=== PATIENT | male | born 1975 | race American Indian/Alaskan Native ===

== ENCOUNTER 2019-03-30 10:57 | Emergency (ER) | payer OTHER ==
[2019-03-30 11:09] VITALS: BP 139/83
[2019-03-30] MEDS ORDERED: TETANUS,DIPH,PERTUSS(ACELL) VACCINE 0.5 ML SYRINGE IM ONE (11:13)
--- NOTE | 2019-03-30 11:17 | Emergency Department Report ---
ED Laceration HPI - HPI Chief Complaint: Laceration/Recheck/Suture Stated Complaint: CUT FINGER Time Seen by Provider: 03/30/19 11:11 Occurred When: Today Location: Upper Extremity Severity: mild Tetanus Status: Not up to Date Laceration Symptoms: Yes Pain, No Foreign Body Sensation, No Numbness, No Weakness Other History: This is a 43-year-old male nontoxic, well in appearance with no signs of distress presents to the ED for laceration to right 5th finger after accident at work with metal. Stated blood is under control. Patient stated he is asymptotic. Denies any decreased ROM. Patient denies any fever, chills, headache, nausea, vomiting, chest pain or shortness of breathe. Denies any other symptoms or complaints. Denies any allergies or PMH. ED Review of Systems ROS: Stated complaint: CUT FINGER Other details as noted in HPI Constitutional: denies: chills, fever Eyes: denies: eye pain, eye discharge, vision change ENT: denies: ear pain, throat pain Respiratory: denies: cough, shortness of breath, wheezing Cardiovascular: denies: chest pain, palpitations Endocrine: no symptoms reported Gastrointestinal: denies: abdominal pain, nausea, diarrhea Genitourinary: denies: urgency, dysuria Musculoskeletal: denies: back pain, joint swelling, arthralgia Skin: denies: rash, lesions Neurological: denies: headache, weakness, paresthesias Psychiatric: denies: anxiety, depression Hematological/Lymphatic: denies: easy bleeding, easy bruising ED Past Medical Hx - Past Medical History Previous Medical History?: No - Surgical History Past Surgical History?: No - Social History Smoking Status: Current Every Day Smoker Substance Use Type: Alcohol - Medications Home Medications: Home Medications Medication Instructions Recorded Confirmed Last Taken Type Acetaminophen/Codeine [Tylenol 1 tab PO Q6H PRN #6 tab 03/30/19 Unknown Rx /Codeine # 3 tab] Sulfamethoxazole/Trimethoprim 1 each PO BID #10 tablet 03/30/19 Unknown Rx [Bactrim DS TAB] Laceration Physical Exam - Exam General: Vital signs noted. No distress. Alert and acting appropriately. Wound Length (cm): 1 (superifical) Laceration Location: Upper Extremity Laceration Exam: Yes Normal Distal CMS, No Foreign Body, No Exposed Tendon, Vessel, or Nerve, No Tendon Injury ED Course Vital Signs 03/30/19 11:07 Temperature 98.2 F Pulse Rate 85 Respiratory 18 Rate Blood Pressure 139/83 O2 Sat by Pulse 98 Oximetry - Reevaluation(s) Reevaluation #1: 03/30/19 11:15 Patient is speaking in full sentences with no signs of distress noted. - Laceration /Wound Repair Right Finger Wound Location: upper extremity (5th digit) Wound Length (cm): 1 Wound's Depth, Shape: superficial Wound Explored: clean Irrigated w/ Saline (ccs): 40 Betadine Prep?: Yes Wound Repaired With: Dermabond Sterile Dressing Applied?: Yes Progress: Under sterile field, I used betadine to clean the area. I then used Dermond to proximate the laceration. Sterile dressing applied. Patient tolerated well. Bleeding under control. ED Medical Decision Making - Medical Decision Making 43-year-old male that presents with lac. Patient is stable and was examined by me. Dermabond applied. Patient tolerated well. Educated on care. Patient was instructed to Follow-up with a primary care doctor in 3-5 days or if symptoms worsen and continue return to emergency room as soon as possible. At time of discharge, the patient does not seem toxic or ill in appearance. No acute signs of distress noted. Patient agrees to discharge treatment plan of care. No further questions noted by the patient. Critical care attestation.: If time is entered above; I have spent that time in minutes in the direct care of this critically ill patient, excluding procedure time. ED Disposition Clinical Impression: Laceration Disposition: DC-01 TO HOME OR SELFCARE Is pt being admited?: No Does the pt Need Aspirin: No Condition: Stable Instructions: Laceration (ED), Skin Adhesive Care (ED), Acetaminophen/Codeine (By mouth) Additional Instructions: Follow-up with a primary care doctor in 3-5 days or if symptoms worsen and continue return to emergency room as soon as possible. Prescriptions: Sulfamethoxazole/Trimethoprim [Bactrim DS TAB] 1 each PO BID #10 tablet Acetaminophen/Codeine [Tylenol /Codeine # 3 tab] 1 tab PO Q6H PRN #6 tab PRN Reason: Pain , Severe (7-10) Referrals: PRIMARY CAREMD [Referring] - 3-5 Days ALISE LUIS MD [Staff Physician] - 3-5 Days [facility] [place] [Outside] - 3-5 Days [facility] [Outside] - 3-5 Days Forms: Work/School Release Form(ED)
[2019-03-30] MEDS ORDERED: TETANUS,DIPHTHERIA TOXOID ADULT 0.5 ML INJ IM ONE (11:37)
== END 2019-03-30 12:31 | disposition home or self-care (01) ==
LOC: ED 10:57
DX: S61.216A Laceration without foreign body of right little finger without damage to nail, initial encounter (principal); F17.200 Nicotine dependence, unspecified, uncomplicated; W26.8XXA Contact with other sharp object(s), not elsewhere classified, initial encounter; Y93.89 Activity, other specified; Y92.69 Other specified industrial and construction area as the place of occurrence of the external cause; Y99.8 Other external cause status
CPT/HCPCS: 90471; 90715

== ENCOUNTER 2020-11-02 06:20 | Emergency (ER) | payer OTHER ==
[2020-11-02] MEDS ORDERED: CYCLOBENZAPRINE 10 MG TAB PO ONE (07:27)
[2020-11-02] MEDS ORDERED: predniSONE 20 MG TAB PO ONE (07:27)
[2020-11-02] MEDS ORDERED: IBUPROFEN 800 MG TAB PO ONE (07:27)
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
[2020-11-02 08:19] VITALS: BP 140/90
== END 2020-11-02 10:54 | disposition home or self-care (01) ==
LOC: ED 06:20
DX: M54.5 Low back pain (principal); M79.18 Myalgia, other site; V89.2XXA Person injured in unspecified motor-vehicle accident, traffic, initial encounter; Y93.89 Activity, other specified; Y92.488 Other paved roadways as the place of occurrence of the external cause; Y99.8 Other external cause status
CPT/HCPCS: 99282; J7512

== ENCOUNTER 2021-07-26 07:18 | Emergency (ER) | payer SELFPAY ==
--- NOTE | 2021-07-26 08:33 | XRay Report ---
Right knee-3 views INDICATION: knee pain. COMPARISON: None available. IMPRESSION: No acute osseous abnormality. Normal alignment. No significant DJD. Prominent enthesop athic change versus sequelae of old Harwood-Schlatter pathology along the tibial tuberosity with mild adjacent soft tissue swelling. Signer Name: Bandar Sandoval MD Signed: 07/26/2021 8:29 AM Workstation Name: [id number]
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
[2021-07-26 09:45] VITALS: BP 161/89
== END 2021-07-26 10:13 | disposition home or self-care (01) ==
LOC: ED 07:18
DX: M25.561 Pain in right knee (principal); Z79.899 Other long term (current) drug therapy
CPT/HCPCS: 99283

== ENCOUNTER 2021-09-06 06:40 | Emergency (ER) | payer SELFPAY ==
[2021-09-06 09:35] VITALS: BP 135/90
[2021-09-06] MEDS: CYCLOBENZAPRINE 10 MG TAB PO ONE (09:51)
[2021-09-06] MEDS: KETOROLAC 60 MG/2 ML INJ IM ONE (09:51)
--- NOTE | 2021-09-06 09:57 | Emergency Department Report ---
ED Back Pain/Injury HPI - General Chief Complaint: Back Pain/Injury Stated Complaint: BACK PAIN Time Seen by Provider: 09/06/21 09:42 Source: patient Limitations: No Limitations - History of Present Illness Initial Comments: 46-year-old male who presents with right-sided lower back pain that started yesterday progressively getting worse. Patient works at [employer] at [employer] where he has to lift some heavy objects. Patient denies any fall or particular incident. Patient denies any bloody urine. No history of kidney stone reported. No fever or chills noted. No other modifying factors reported. - Related Data Previous Rx's Medication Instructions Recorded Last Taken Type predniSONE [Deltasone] 20 mg PO DAILY #5 tablet 11/02/20 Unknown Rx Cyclobenzaprine HCl [Flexeril 5 MG 5 mg PO TID #7 tab 09/06/21 Unknown Rx TAB] Ketorolac [Toradol] 10 mg PO Q6H PRN #20 09/06/21 Unknown Rx Allergies Allergy/AdvReac Type Severity Reaction Status Date / Time No Known Allergies Allergy Unverified 03/30/19 11:10 ED Review of Systems ROS: Stated complaint: BACK PAIN Other details as noted in HPI Comment: All other systems reviewed and negative Musculoskeletal: back pain (Right-sided lower back pain) ED Past Medical Hx - Past Medical History Previous Medical History?: No - Surgical History Past Surgical History?: No - Social History Smoking Status: Current Every Day Smoker - Medications Home Medications: Home Medications Medication Instructions Recorded Confirmed Last Taken Type predniSONE [Deltasone] 20 mg PO DAILY #5 tablet 11/02/20 Unknown Rx Cyclobenzaprine HCl [Flexeril 5 MG 5 mg PO TID #7 tab 09/06/21 Unknown Rx TAB] Ketorolac [Toradol] 10 mg PO Q6H PRN #20 09/06/21 Unknown Rx ED Physical Exam - General Limitations: No Limitations General appearance: alert, in no apparent distress - Head Head exam: Present: normal inspection - Eye Eye exam: Present: normal appearance - ENT ENT exam: Present: normal exam - Neck Neck exam: Present: normal inspection - Respiratory Respiratory exam: Present: normal lung sounds bilaterally - Cardiovascular Cardiovascular Exam: Present: regular rate, normal rhythm - GI/Abdominal GI/Abdominal exam: Present: soft, normal bowel sounds. Absent: tenderness, guarding, rebound - Extremities Exam Extremities exam: Present: normal inspection, full ROM, normal capillary refill. Absent: tenderness, pedal edema, calf tenderness - Back Exam Back exam: Present: normal inspection, muscle spasm (Right lower back muscle), paraspinal tenderness - Neurological Exam Neurological exam: Present: alert, oriented X3 - Psychiatric Psychiatric exam: Present: normal affect, normal mood - Skin Skin exam: Present: warm ED Course Vital Signs 09/06/21 09/06/21 09/06/21 07:29 07:30 09:29 Temperature 98.3 F 98.3 F Pulse Rate 76 76 64 Respiratory 18 18 13 Rate Blood Pressure 135/88 Blood Pressure [Left] O2 Sat by Pulse 95 95 Oximetry 09/06/21 09/06/21 09:31 09:33 Temperature 97.6 F Pulse Rate 61 61 Respiratory 25 H 12 Rate Blood Pressure 135/90 Blood Pressure 135/90 [Left] O2 Sat by Pulse 100 97 Oximetry ED Medical Decision Making - Medical Decision Making Back pain with no red flag but right paraspinal lower back tenderness and muscle spasm--no imaging is necessary at this point we will go ahead and give patient pain medication Toradol and Flexeril for muscle relaxant and discharge on Toradol and Flexeril with close follow-up with his primary doctor. Critical care attestation.: If time is entered above; I have spent that time in minutes in the direct care of this critically ill patient, excluding procedure time. ED Disposition Clinical Impression: Lumbago Qualifiers: Chronicity: acute Back pain laterality: right Sciatica presence: without sci atica Qualified Code(s): M54.50 - Low back pain, unspecified Disposition: 01 HOME / SELF CARE / HOMELESS Is pt being admited?: No Does the pt Need Aspirin: No Condition: Stable Instructions: What You Need to Know About Chronic Back Pain, Back Exercises, Olrn-be-[id number], Preventing Back Pain for New Parents Additional Instructions: : Follow-up with your primary doctor in the next 3 to 5 days for progress Take your pain medication as prescribed to help your symptoms It is okay to apply topical analgesic Please do not hesitate to call or return to the emergency room if your symptoms worsen Prescriptions: Cyclobenzaprine HCl [Flexeril 5 MG TAB] 5 mg PO TID #7 tab Ketorolac [Toradol] 10 mg PO Q6H PRN #20 PRN Reason: Pain Referrals: MARSHALL WILLOUGHBY MD [Primary Care Provider] - 3-5 Days Time of Disposition: 10:03 (Please discharge patient after the pain medication is given)
== END 2021-09-06 10:53 | disposition home or self-care (01) ==
LOC: ED 06:40
DX: M54.50 Low back pain, unspecified (principal); F17.200 Nicotine dependence, unspecified, uncomplicated
CPT/HCPCS: 96372; 99282; J1885